=== PATIENT | male | born 1965 | race African-American/Black ===

== ENCOUNTER 2018-06-14 02:09 | Emergency (ER) | payer OTHER ==
[2018-06-14 02:16] VITALS: BP 124/98
[2018-06-14] MEDS ORDERED: HYDROMORPHONE HCL INJ/PF 2 MG/ML AMPULE IM STA (03:18)
[2018-06-14] MEDS ORDERED: ONDANSETRON 4 MG TAB.RAPDIS PO ONE (03:19)
[2018-06-14] MEDS ORDERED: LIDOCAINE 2% URO-JET 5 ML KIT MM ONE (04:03)
--- NOTE | 2018-06-14 07:32 | ER Document Report ---
ED GI/ <INNAMARIA DEL CARMEN MCDONNELL - Last Filed: 06/14/18 12:36> - General Mode of Arrival: Ambulatory Information source: Patient - HPI Patient complains to provider of: Paris catheter problem, Hematuria Onset: Just prior to arrival Timing/Duration: Sudden Quality of pain: Fullness, Pressure, Throbbing Severity at maximum: Severe Severity in ED: Severe - The only Pain Level: 4 Location: Suprapubic Sexual history: Active Associated symptoms: None Exacerbated by: Denies Relieved by: Denies Similar symptoms previously: Yes Recently seen / treated by doctor: Yes <LIZET BULLOCK - Last Filed: 06/14/18 20:10> - General Chief Complaint: Blood in Catheter Stated Complaint: URINARY PROBLEM Time Seen by Provider: 06/14/18 03:07 Notes: Patient is a 52-year-old male comes to the emergency room complaining of Paris catheter problems. Patient had a bladder biopsy done yesterday by Dr. Nair and was doing fine up until about 11:00 last night he was waking up with a feeling of having to urinate when he woke up the Paris bag was clogged and patient was unable to urinate. He attempted to adjust multiple times and had no success so he came into the emergency room. (LIZET BULLOCK) - Related Data Allergies/Adverse Reactions: Sulfa (Sulfonamide Antibiotics) Allergy (Verified 06/14/18 02:10) Past Medical History - General Information source: Patient - Social History Smoking Status: Never Smoker Cigarette use (# per day): No Chew tobacco use (# tins/day): No Smoking Education Provided: No Frequency of alcohol use: None Drug Abuse: None Lives with: Alone Family History: None, Reviewed & Not Pertinent Patient has suicidal ideation: No Patient has homicidal ideation: No Renal/ Medical History: Denies: Hx Peritoneal Dialysis <LIZET BULLOCK - Last Filed: 06/14/18 20:10> Review of Systems - Review of Systems Constitutional: No symptoms reported EENT: No symptoms reported Cardiovascular: No symptoms reported Respiratory: No symptoms reported Gastrointestinal: No symptoms reported Genitourinary: See HPI, Dysuria, Hematuria Male Genitourinary: No symptoms reported Musculoskeletal: No symptoms reported Skin: No symptoms reported Hematologic/Lymphatic: No symptoms reported Neurological/Psychological: No symptoms reported -: Yes All other systems reviewed and negative <LIZET BULLOCK - Last Filed: 06/14/18 20:10> Physical Exam - Vital signs Interpretation: Hypertensive, Tachycardic <LIZET BULLOCK - Last Filed: 06/14/18 20:10> - Vital signs Vitals: Temp Pulse Resp BP Pulse Ox 97.7 F 108 H 16 124/98 H 98 06/14/18 02:14 06/14/18 02:14 06/14/18 02:14 06/14/18 02:14 06/14/18 02:14 - Notes Notes: PHYSICAL EXAMINATION: GENERAL: Well-appearing, well-nourished and in no acute distress. Very uncomfortable appearing HEAD: Atraumatic, normocephalic. EYES: Pupils equal round and reactive to light, extraocular movements intact, sclera anicteric, conjunctiva are normal. LUNGS: Breath sounds clear to auscultation bilaterally and equal. No wheezes rales or rhonchi. HEART: Tachycardic rate and rhythm without murmurs ABDOMEN: Examination patient's abdomen shows that he has bowel sounds in all 4 quads. He is distention of the bladder secondary to Paris catheter obstruction. Very tender to palpate and very full feeling. NEUROLOGICAL: Cranial nerves grossly intact. Normal speech, normal gait. Normal sensory, motor exams PSYCH: Normal mood, normal affect. SKIN: Warm, Dry, normal turgor, no rashes or lesions noted. (LIZET BULLOCK) Course - Laboratory Result Diagrams: 06/14/18 09:25 <MARIA DEL CARMEN UMANZOR - Last Filed: 06/14/18 12:36> - Laboratory Result Diagrams: 06/14/18 09:25 <LIZET BULLOCK - Last Filed: 06/14/18 20:10> - Re-evaluation Re-evalutation: 06/14/18 10:[address] Causey, [facility]rologist[facility] He accepted patient for transfer. CBC was drawn and hemoglobin 9.9. We do not have a baseline patient denies any history of anemia. Transfer initiated. 06/14/18 12:36 Patient sitting comfortably in the room in no acute distress, vital signs stable. At this time [facility] is [facility] (MARIA DEL CARMEN UMANZOR) 06/14/18 07:33 Patient's stay in the emergency room is been somewhat eventful. Patient had a 24-gauge Paris catheter in that had to be changed out to a 26 and he had 16,000 mL's of fluid run through on his CBI. He is still passing clots and bright red blood. I have put a call out to Dr. Castelan who was the urologist to perform the procedure and is informed that he is not on-call today the Dr. Causey is and I am waiting for that return call. (LIZET BULLOCK) - Vital Signs Vital signs: Temp Pulse Resp BP Pulse Ox 97.7 F 108 H 16 124/98 H 99 06/14/18 02:14 06/14/18 02:14 06/14/18 02:14 06/14/18 02:14 06/14/18 06:00 - Laboratory Laboratory results interpreted by me: 06/14/18 09:25 RBC 3.60 L Hgb 9.9 L Hct 29.2 L Discharge <MARIA DEL CARMEN UMANZOR - Last Filed: 06/14/18 12:36> <LIZET BULLOCK - Last Filed: 06/14/18 20:10> - Discharge Clinical Impression: Hematuria Qualifiers: Hematuria type: unspecified type Qualified Code(s): R31.9 - Hematuria, unspecified Paris catheter problem Qualifiers: Encounter type: initial encounter Qualified Code(s): T83.9XXA - Unspecified complication of genitourinary prosthetic device, implant and graft, initial encounter Disposition: [facility]
[2018-06-14 09:52] LABS: ABSOLUTE LYMPHOCYTES (AUTO) 2.3 10^3/uL (0.5-4.7); ABSOLUTE MONOCYTES (AUTO) 1.3 10^3/uL (0.1-1.4); ABSOLUTE NEUT (AUTO) 6.7 10^3/uL (1.7-8.2); BASOPHILS % (AUTO) 0.1 % (0-2); EOSINOPHILS % (AUTO) 0.2 % (0-6); HEMATOCRIT 29.2 % (37.9-51.0); HEMOGLOBIN 9.9 g/dL (13.5-17.0); LYMPHOCYTES % (AUTO) 22.4 % (13-45); MEAN CORPUSCULAR HEMOGLOBIN 27.6 pg (27.0-33.4); MEAN CORPUSCULAR VOLUME 81 fl (80-97); MONOCYTES % (AUTO) 12.6 % (3-13); PLATELET COUNT 270 10^3/uL (150-450); RED CELL DISTRIBUTION WIDTH 13.3 % (11.5-14.0); SEGMENTED NEUTROPHILS % (AUTO) 64.7 % (42-78); TOTAL CELLS COUNTED % (AUTO) 100 %; WHITE BLOOD COUNT 10.3 10^3/uL (4.0-10.5)
--- NOTE | 2018-06-14 13:10 | ER Document Report ---
Doctor's Note Notes: 06/14/18 13:08 Patient seen in conjunction with 2 physician assistants. Please see their notes to correlate with mine. In short, this patient had a bladder biopsy performed yesterday. He was sent home with a Paris catheter. He started having increased swelling and decreased drainage from the catheter, so presented to the emergency department for evaluation. Here in the ED he had a significant amount of CBI. Unfortunately, he still continued to form blood clots and have markedly bloody urine. Patient is feeling somewhat improved although he states he does have some pain in that area. Vital signs reviewed. Heart is regular rate and rhythm, lungs are clear to all station bilaterally. Abdomen reveals mild sup rapubic tenderness, Paris catheter is in place. There is bright red, bloody urine noted in the Paris bag. In short, I believe this patient may require further intervention via cystoscopy. His urologist is a Tobias Vaz. We have no urology on-call here today. We will transfer the patient there for more definitive care.
== END 2018-06-14 13:07 | disposition short-term general hospital (02) ==
LOC: ER 02:09
DX: T83.9XXA Unspecified complication of genitourinary prosthetic device, implant and graft, initial encounter (principal); R31.9 Hematuria, unspecified
CPT/HCPCS: 99284; 96372; 51702; 36415; 85025; S0119; J1170; J3490

== ENCOUNTER → 2018-12-28 | Outpatient (CLI) | payer OTHER ==
--- NOTE | 2018-12-28 13:20 | RADIOLOGY REPORT (SQ) ---
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 RADIONUCLIDE AND DOSE: 21.6 millicuries Tc99m HDP. The route of agent administration: Intravenous. ADDITIONAL DRUGS AND DOSES: None. TECHNIQUE: Routine delayed images at 3 hour post radionuclide injection acquired of the bony skeleto n including anterior and posterior whole-body projections and additional focused images as needed. LIMITATIONS: None. FINDINGS: BONES: Multiple foci of increased uptake in the spine, right scapula, pelvis and skull con sistent with metastatic disease. KIDNEYS: Symmetric excretion without obstruction. OTHER: No other significant finding. IMPRESSION: Bone metastasis. COMMENT: Quality measure 147: No available prior imaging studies for comparison TECHNICAL DOCUMENTATION: JOB ID: [id number] [employer]- All Rights Reserved Reading location - IP/workstation name: [email or web address]
== END ==
LOC: RAD 08:06
PROVIDERS: ATTEND Internal Medicine Hematology & Oncology
DX: C61 Malignant neoplasm of prostate (principal); C79.51 Secondary malignant neoplasm of bone
CPT/HCPCS: 78306; A9561; Q9969

== ENCOUNTER → 2019-01-10 | Outpatient (CLI) | payer OTHER ==
--- NOTE | 2019-01-10 16:22 | RADIOLOGY REPORT (SQ) ---
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 COMPARISON: None. TECHNIQUE: CT scan of the chest performed using helical scanning technique with dynamic intravenous contrast injection. Images reviewed with lung, soft tissue and bone windows. Reconstructed coronal a nd sagittal MPR images reviewed. All images stored on PACS. All CT scanners at this facility use dose modulation, iterative reconstruction, and/or weight based d osing when appropriate to reduce radiation dose to as low as reasonably achievable (ALARA). [facility]: Dose Right [facility]: CareDose [facility]: Dose Right [facility]: Teradose 4D [facility]: [employer] LIMITATIONS: None. FINDINGS: AXILLAE: No adenopathy. CHEST WALL: No abnormality. LUNGS: The trachea main bronchi are patent. There is no consolidation, ground-glass opacification, o r nodule. PLEURA: No pleural fluid, thickening or calcification. THYROID: No mass or asymmetry. HILAR AND MEDIASTINAL STRUCTURES: The soft tissue in the anterior mediastinum is nonspecific and coul d represent thymus. There is no enlarged mediastinal or hilar adenopathy. AORTA AND GREAT VESSELS: No thoracic aortic aneurysm or dissection. PULMONARY ARTERIES: Evaluation is limited due to suboptimal contrast opacification of the pulmonary a rteries. HEART: No cardiomegaly or pericardial effusion. HARDWARE AND LIFELINES: None. BONES: There are sclerotic lesions within several thoracic vertebral bodies, the right scapula (image 26 of series 2) and the right posterior 6th rib (image 22 of series 2) - correlation with the findin gs on the bone scan is recommended. OTHER: No other finding. IMPRESSION: Sclerotic osseous metastases as detailed above. No other thoracic abnormality. COMPARISON: None. RADIATION DOSE: CT Rad equipment meets quality standard of care and radiation dose reduction techniq ues were employed. CTDIvol: 4.5 - 4.9 mGy. DLP: 744 mGy-cm.mGy. TECHNIQUE: CT scan of the abdomen and pelvis performed with intravenous and oral contrast using tera luis angel scanning technique with dynamic intravenous contrast injection. Images reviewed with lung, soft tissue and bone windows. Reconstructed coronal and sagittal MPR images reviewed. Delayed images for evaluation of the urinary system also acquired and evaluated. All images stored on PACS. All CT scanners at this facility use dose modulation, iterative reconstruction, and/or weight based d osing when appropriate to reduce radiation dose to as low as reasonably achievable (ALARA). [facility]: Dose Right [facility]: SureCare [facility]: Dose Right [facility]: Teradose 4D [facility]: [employer] FINDINGS: LIVER: The liver morphology is non cirrhotic. The portal vein is patent. The subcentimet er hypodensity within segment 4 of the liver (image 29 of series 3) is too small to characterize and attention on follow-up CTs is recommended. SPLEEN: No splenomegaly. PANCREAS: No abnormality. GALLBLADDER: No abnormality that is apparent on CT. ADRENAL GLANDS: No abnormality. RIGHT KIDNEY AND URETER: No solid masses, hydronephrosis, nephrolithiasis, hydroureter or ureterolith iasis. The subcentimeter hypodense lesion that arises from the lateral cortex of the kidney (image 4 1 of series 3) is too small to characterize. LEFT KIDNEY AND URETER: No solid mass, hydronephrosis, nephrolithiasis, hydroureter or ureterolithias is AORTA AND VESSELS: No aneurysm or dissection of the abdominal aorta. 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 LARGE AND SMALL BOWEL: Colonic diverticulosis without diverticulitis. APPENDIX: Unable to identify the appendix but there is no pericecal inflammation to indicate an acute appendicitis. ABDOMINAL WALL: Stranding and fluid within the subcutaneous tissues of the ventral abdomen (image 53 of series 3 and 62 of series 3) are nonspecific and correlation for blunt trauma is recommended. PERITONEAL CAVITY: No free intraperitoneal fluid or mesenteric adenopathy PELVIS: There is a lobulated hyperdensity that projects within the urinary bladder (image 37 of serie s 605) that is nonspecific - correlation with US is recommended. BONES: There are sclerotic metastases within several lumbar vertebral bodies, the bilateral marisol, and the left ischium - correlation with the findings on the bone scan is recommended. OTHER: No other finding. IMPRESSION: 1. Sclerotic osseous metastases as detailed above - correlation with the findings on th e bone scan is recommended. 2. Prominent / enlarged retroperitoneal lymph nodes that are concerning for bunny metastases. 3. Lobulated hyperdensity within the urinary bladder is nonspecific and an ultrasound is recommended to differentiate a clot from a solid mass. 4. Stranding and fluid within the subcutaneous tissues of the ventral abdomen (image 53 of series 3 and 62 of series 3) - correlate for history of recent blunt trauma. 5. Other findings as detailed above. TECHNICAL DOCUMENTATION: JOB ID: [id number] Quality ID # [id number]: Final reports with documentation of one or more dose reduction techniques (e.g., Au tomated exposure control, adjustment of the mA and/or kV according to patient size, use of iterative reconstruction technique) 2010 [employer]- All Rights Reserved Reading location - IP/workstation name: [email or web address]
--- NOTE | 2019-01-10 16:22 | RADIOLOGY REPORT (SQ) ---
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 COMPARISON: None. TECHNIQUE: CT scan of the chest performed using helical scanning technique with dynamic intravenous contrast injection. Images reviewed with lung, soft tissue and bone windows. Reconstructed coronal a nd sagittal MPR images reviewed. All images stored on PACS. All CT scanners at this facility use dose modulation, iterative reconstruction, and/or weight based d osing when appropriate to reduce radiation dose to as low as reasonably achievable (ALARA). [facility]: Dose Right [facility]: CareDose [facility]: Dose Right [facility]: Teradose 4D [facility]: [employer] First LIMITATIONS: None. FINDINGS: AXILLAE: No adenopathy. CHEST WALL: No abnormality. LUNGS: The trachea main bronchi are patent. There is no consolidation, ground-glass opacification, o r nodule. PLEURA: No pleural fluid, thickening or calcification. THYROID: No mass or asymmetry. HILAR AND MEDIASTINAL STRUCTURES: The soft tissue in the anterior mediastinum is nonspecific and coul d represent thymus. There is no enlarged mediastinal or hilar adenopathy. AORTA AND GREAT VESSELS: No thoracic aortic aneurysm or dissection. PULMONARY ARTERIES: Evaluation is limited due to suboptimal contrast opacification of the pulmonary a rteries. HEART: No cardiomegaly or pericardial effusion. HARDWARE AND LIFELINES: None. BONES: There are sclerotic lesions within several thoracic vertebral bodies, the right scapula (image 26 of series 2) and the right posterior 6th rib (image 22 of series 2) - correlation with the findin gs on the bone scan is recommended. OTHER: No other finding. IMPRESSION: Sclerotic osseous metastases as detailed above. No other thoracic abnormality. COMPARISON: None. RADIATION DOSE: CT Rad equipment meets quality standard of care and radiation dose reduction techniq ues were employed. CTDIvol: 4.5 - 4.9 mGy. DLP: 744 mGy-cm.mGy. TECHNIQUE: CT scan of the abdomen and pelvis performed with intravenous and oral contrast using tera luis angel scanning technique with dynamic intravenous contrast injection. Images reviewed with lung, soft tissue and bone windows. Reconstructed coronal and sagittal MPR images reviewed. Delayed images for evaluation of the urinary system also acquired and evaluated. All images stored on PACS. All CT scanners at this facility use dose modulation, iterative reconstruction, and/or weight based d osing when appropriate to reduce radiation dose to as low as reasonably achievable (ALARA). [facility]: Dose Right [facility]: SureCare [facility]: Dose Right [facility]: Teradose 4D [facility]: [employer] It First FINDINGS: LIVER: The liver morphology is non cirrhotic. The portal vein is patent. The subcentimet er hypodensity within segment 4 of the liver (image 29 of series 3) is too small to characterize and attention on follow-up CTs is recommended. SPLEEN: No splenomegaly. PANCREAS: No abnormality. GALLBLADDER: No abnormality that is apparent on CT. ADRENAL GLANDS: No abnormality. RIGHT KIDNEY AND URETER: No solid masses, hydronephrosis, nephrolithiasis, hydroureter or ureterolith iasis. The subcentimeter hypodense lesion that arises from the lateral cortex of the kidney (image 4 1 of series 3) is too small to characterize. LEFT KIDNEY AND URETER: No solid mass, hydronephrosis, nephrolithiasis, hydroureter or ureterolithias is AORTA AND VESSELS: No aneurysm or dissection of the abdominal aorta. 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 LARGE AND SMALL BOWEL: Colonic diverticulosis without diverticulitis. APPENDIX: Unable to identify the appendix but there is no pericecal inflammation to indicate an acute appendicitis. ABDOMINAL WALL: Stranding and fluid within the subcutaneous tissues of the ventral abdomen (image 53 of series 3 and 62 of series 3) are nonspecific and correlation for blunt trauma is recommended. PERITONEAL CAVITY: No free intraperitoneal fluid or mesenteric adenopathy PELVIS: There is a lobulated hyperdensity that projects within the urinary bladder (image 37 of serie s 605) that is nonspecific - correlation with US is recommended. BONES: There are sclerotic metastases within several lumbar vertebral bodies, the bilateral marisol, and the left ischium - correlation with the findings on the bone scan is recommended. OTHER: No other finding. IMPRESSION: 1. Sclerotic osseous metastases as detailed above - correlation with the findings on th e bone scan is recommended. 2. Prominent / enlarged retroperitoneal lymph nodes that are concerning for bunny metastases. 3. Lobulated hyperdensity within the urinary bladder is nonspecific and an ultrasound is recommended to differentiate a clot from a solid mass. 4. Stranding and fluid within the subcutaneous tissues of the ventral abdomen (image 53 of series 3 and 62 of series 3) - correlate for history of recent blunt trauma. 5. Other findings as detailed above. TECHNICAL DOCUMENTATION: JOB ID: [id number] Quality ID # [id number]: Final reports with documentation of one or more dose reduction techniques (e.g., Au tomated exposure control, adjustment of the mA and/or kV according to patient size, use of iterative reconstruction technique) 2010 [employer]- All Rights Reserved Reading location - IP/workstation name: [email or web address]
== END ==
LOC: RAD 14:55
PROVIDERS: ATTEND Nurse Practitioner Family
DX: C61 Malignant neoplasm of prostate (principal); C79.51 Secondary malignant neoplasm of bone
CPT/HCPCS: 71260; 74177; 82565

== ENCOUNTER → 2019-04-16 | Outpatient (CLI) | payer OTHER ==
--- NOTE | 2019-04-16 10:46 | RADIOLOGY REPORT (SQ) ---
EXAM DESCRIPTION: CT ABD/PELVIS WITH IV ONLY; CT CHEST WITH COMPLETED DATE/TIME: 04/16/2019 8:32 am REASON FOR STUDY: PROSTATE CA (C61) C61 MALIGNANT NEOPLASM OF PROSTATE COMPARISON: Whole-body bone scan 12/28/2018 CT chest abdomen pelvis 01/10/2019 CONTRAST TYPE AND DOSE: contrast/concentration: Isovue 350.00 mg/ml; Total Contrast Delivered: 94.0 ml; Total Saline Delivered: 71.0 ml RENAL FUNCTION: Creatinine 0.8 TECHNIQUE: CT scan of the chest performed using helical scanning technique with dynamic intravenous contrast injection. Images reviewed with lung, soft tissue and bone windows. Reconstructed coronal a nd sagittal MPR images reviewed. All images stored on PACS. CT scan of the abdomen and pelvis performed with intravenous and without oral contrastusing helical s cristina technique with dynamic intravenous contrast injection. Images reviewed with lung, soft tissu e and bone windows. Reconstructed coronal and sagittal MPR images reviewed. Delayed images for eval uation of the urinary system also acquired and evaluated. All images stored on PACS. All CT scanners at this facility use dose modulation, iterative reconstruction, and/or weight based d osing when appropriate to reduce radiation dose to as low as reasonably achievable (ALARA). [facility]: Dose Right [facility]: CareDose [facility]: Dose Right [facility]: Teradose 4D [facility]: [employer] RADIATION DOSE: CT Rad equipment meets quality standard of care and radiation dose reduction techniq ues were employed. CTDIvol: 4.9 - 5.4 mGy. DLP: 780 mGy-cm. . LIMITATIONS: None. FINDINGS: CHEST: LUNGS AND PLEURA: No opacities, nodules, masses. No pneumothorax. No effusions. HILAR AND MEDIASTINAL STRUCTURES: No identified masses or abnormal nodes. HEART AND VASCULAR STRUCTURES: No aneurysm or dissection. No central pulmonary emboli. No pericardi al effusion. HARDWARE: None. THYROID AND OTHER SOFT TISSUES: No masses. No adenopathy. BONES: Stable Diffuse small bony metastatic lesions are scattered throughout the thoracic spine, the largest is in the rightward T12 vertebral body. OTHER: No other significant finding. ABDOMEN AND PELVIS: LIVER: Normal size. No masses. No dilated ducts. Benign 6 mm cyst left lobe liver axial image 62/77 SPLEEN: Normal size. No focal lesions. PANCREAS: No masses. No significant calcifications. No adjacent inflammation or peripancreatic fluid collections. Pancreatic duct not dilated. GALLBLADDER: No identified stones by CT criteria. No inflammatory changes to suggest cholecystitis. ADRENAL GLANDS: No significant masses or asymmetry. RIGHT KIDNEY AND URETER: No solid masses. 2 cm right midpole cortical cyst. No significant calcific ation. No hydronephrosis or hydroureter. LEFT KIDNEY AND URETER: No solid masses. No significant calcification. No hydronephrosis or hydrouret er. AORTA AND VESSELS: No aneurysm. No dissection. Renal arteries, SMA, celiac without stenosis. RETROPERITONEUM: No retroperitoneal adenopathy, hemorrhage or masses. BOWEL AND PERITONEAL CAVITY: No masses or inflammatory changes. No free fluid or peritoneal masses. APPENDIX: Normal. ABDOMINAL WALL: No masses. No hernias. Stranding in the subcutaneous fat anterior abdominal wall lik humberto from plastic surgery procedure PELVIS: Post prostatectomy. Bladder unremarkable. No pelvic masses or adenopathy. BONES: Stable Bony metastatic lesions in the lower lumbar spine and bony pelvis/left ischium. OTHER: No other significant finding. IMPRESSION: Stable bony metastatic lesions. Post prostatectomy. Otherwise unremarkable CT chest abdomen pelvis TECHNICAL DOCUMENTATION: JOB ID: [id number] Quality ID # [id number]: Final reports with documentation of one or more dose reduction techniques (e.g., Au tomated exposure control, adjustment of the mA and/or kV according to patient size, use of iterative reconstruction technique) 2010 [employer]- All Rights Reserved Reading location - IP/workstation name: [email or web address]
--- NOTE | 2019-04-16 13:30 | RADIOLOGY REPORT (SQ) ---
EXAM DESCRIPTION: NM WHOLE BODY BONE SCAN COMPLETED DATE/TIME: 04/16/2019 12:19 pm REASON FOR STUDY: PROSTATE CA (C61 C61 MALIGNANT NEOPLASM OF PROSTATE COMPARISON: 12/28/2018 RADIONUCLIDE AND DOSE: 2 millicuries Tc99m HDP. The route of agent administration: Intravenous. ADDITIONAL DRUGS AND DOSES: None. TECHNIQUE: Routine delayed images at 3 hours post radionuclide injection acquired of the bony skelet on including anterior and posterior whole-body projections and additional focused images as needed. LIMITATIONS: None. FINDINGS: BONES: Persistent abnormal areas of uptake is seen in the calvarium, spine, left sacrum, r ight ilium, right inferior pubic ramus, right coronoid process. There are no new findings. KIDNEYS: Symmetric excretion without obstruction. OTHER: No other significant finding. IMPRESSION: Metastatic disease to bone with no significant interval change. COMMENT: Quality measure 147: Current bone scan is compared with any available plain radiographs, p rior bone scans, and CT/MRI. TECHNICAL DOCUMENTATION: JOB ID: [id number] 2010 [employer]- All Rights Reserved Reading location - IP/workstation name: [email or web address]
== END ==
LOC: RAD 07:44
PROVIDERS: ATTEND Nurse Practitioner Family
DX: C61 Malignant neoplasm of prostate (principal); C79.51 Secondary malignant neoplasm of bone
CPT/HCPCS: 82565; 78306; 71260; 74177; A9561; Q9969

== ENCOUNTER → 2020-03-24 | Outpatient (CLI) | payer OTHER ==
--- NOTE | 2020-03-24 14:12 | RADIOLOGY REPORT (SQ) ---
EXAM DESCRIPTION: CT CHEST WITH; CT ABD/PELVIS WITH IV ORAL IMAGES COMPLETED DATE/TIME: 03/24/2020 9:32 am REASON FOR STUDY: (C61)MALIGNANT NEOPLASM OF PROSTATE C61 MALIGNANT NEOPLASM OF PROSTATE CONTRAST TYPE AND DOSE: contrast/concentration: Isovue 350.00 mmol/ml; Total Contrast Delivered: 89. 0 ml; Total Saline Delivered: 45.0 ml RENAL FUNCTION: Creatinine 0.8 COMPARISON: 01/10/2019 04/16/2019 TECHNIQUE: CT scan of the chest performed using helical scanning technique with dynamic intravenous contrast injection. Images reviewed with lung, soft tissue and bone windows. Reconstructed coronal a nd sagittal MPR images reviewed. All images stored on PACS. All CT scanners at this facility use dose modulation, iterative reconstruction, and/or weight based d osing when appropriate to reduce radiation dose to as low as reasonably achievable (ALARA). [facility]: Dose Right [facility]: CareDose [facility]: Dose Right [facility]: Teradose 4D [facility]: [employer] RADIATION DOSE: CT Rad equipment meets quality standard of care and radiation dose reduction techniq ues were employed. CTDIvol: 5.1 - 5.5 mGy. DLP: 769 mGy-cm. . LIMITATIONS: None. FINDINGS: AXILLAE: Stable nonspecific axillary nodes. CHEST WALL: No masses. No subcutaneous air. LUNGS: No nodules or masses. No pneumothorax. No infiltrates. PLEURA: No effusions. No calcifications. THYROID: No masses or significant asymmetry. HILAR AND MEDIASTINAL STRUCTURES: No identified masses or abnormal nodes. AORTA AND GREAT VESSELS: No aneurysm. No dissection. PULMONARY ARTERIES: No identified pulmonary emboli. Study not optimized for the pulmonary arteries. HEART: No pericardial effusion. HARDWARE AND LIFELINES: None. BONES: Stable metastatic disease in the mid to lower thoracic spine. OTHER: No other significant finding. IMPRESSION: Osseous metastases. Stable nonspecific axillary nodes. No acute cardiopulmonary findin gs. COMPARISON: 04/16/2019 RADIATION DOSE: CT Rad equipment meets quality standard of care and radiation dose reduction techniq ues were employed. CTDIvol: 5.1 - 5.5 mGy. DLP: 769 mGy-cm. mGy. TECHNIQUE: CT scan of the abdomen and pelvis performed with intravenous and oral contrast using tera luis angel scanning technique with dynamic intravenous contrast injection. Images reviewed with lung, soft tissue and bone windows. Reconstructed coronal and sagittal MPR images reviewed. Delayed images for evaluation of the urinary system also acquired and evaluated. All images stored on PACS. All CT scanners at this facility use dose modulation, iterative reconstruction, and/or weight based d osing when appropriate to reduce radiation dose to as low as reasonably achievable (ALARA). [facility]: Dose Right [facility]: [employer] [facility]: Dose Right [facility]: Teradose 4D [facility]: [employer] FINDINGS: LIVER: Normal size. No masses. No dilated ducts. SPLEEN: Normal size. No focal lesions. PANCREAS: No masses. No significant calcifications. No adjacent inflammation or peripancreatic flui d collections. Pancreatic duct not dilated. GALLBLADDER: No identified stones by CT criteria. No inflammatory changes to suggest cholecystitis. ADRENAL GLANDS: No significant masses or asymmetry. RIGHT KIDNEY AND URETER: No solid masses. No significant calcifications. No hydronephrosis or hyd roureter. LEFT KIDNEY AND URETER: No solid masses. No significant calcifications. No hydronephrosis or hydr oureter. AORTA AND VESSELS: No aneurysm. No dissection. Renal arteries, SMA, celiac without stenosis. RETROPERITONEUM: No retroperitoneal adenopathy, hemorrhage or masses. LARGE AND SMALL BOWEL: No dilatation. No masses. No wall thickening. APPENDIX: Not identified. ABDOMINAL WALL: No hernia or masses. PERITONEAL CAVITY: No free air. No free fluid. No peritoneal implants or masses. PELVIS: No mass or free fluid. Normal bladder. BONES: Stable metastatic disease in the lumbar spine and pelvis. OTHER: No other significant finding. IMPRESSION: Stable osseous metastases. No acute finding in the abdomen or pelvis. TECHNICAL DOCUMENTATION: JOB ID: [id number] Quality ID # [id number]: Final reports with documentation of one or more dose reduction techniques (e.g., Au tomated exposure control, adjustment of the mA and/or kV according to patient size, use of iterative reconstruction technique) 2010 [employer]- All Rights Reserved Reading location - IP/workstation name: [email or web address]
--- NOTE | 2020-03-24 14:17 | RADIOLOGY REPORT (SQ) ---
EXAM DESCRIPTION: NM WHOLE BODY BONE SCAN IMAGES COMPLETED DATE/TIME: 03/24/2020 1:02 pm REASON FOR STUDY: (C61)MALIGNANT NEOPLASM OF PROSTATE C61 MALIGNANT NEOPLASM OF PROSTATE COMPARISON: 04/16/2019 RADIONUCLIDE AND DOSE: 20 millicuries Tc99m MDP. The route of agent administration: Intravenous. ADDITIONAL DRUGS AND DOSES: None. TECHNIQUE: Routine delayed images at 3 hours post radionuclide injection acquired of the bony skelet on including anterior and posterior whole-body projections and additional focused images as needed. LIMITATIONS: None. FINDINGS: BONES: There are areas of abnormal uptake in the spine, pelvis, and right shoulder consist ent with metastatic disease. There is a prominent lesion at L3 to the right of the midline that repr esents a new finding. KIDNEYS: Symmetric excretion without obstruction. OTHER: No other significant finding. IMPRESSION: Metastatic disease to bone as described. COMMENT: Quality measure 147: Current bone scan is compared with any available plain radiographs, p rior bone scans, and CT/MRI. TECHNICAL DOCUMENTATION: JOB ID: [id number] 2010 [employer]- All Rights Reserved Reading location - IP/workstation name: [email or web address]
== END ==
LOC: RAD 08:53
PROVIDERS: ATTEND Internal Medicine Hematology & Oncology
DX: C61 Malignant neoplasm of prostate (principal)
CPT/HCPCS: 82565; 78306; 71260; 74177; A9503; Q9969